=== PATIENT | male | born 1995 | race American Indian/Alaskan Native ===

== ENCOUNTER 2024-05-16 20:04 | Emergency (ER) | payer OTHER ==
[2024-05-16 20:44] LABS: BASOPHILS PERCENT AUTO 0.4 % (0.0-1.0); EOSINOPHILS PERCENT AUTO 0.6 % (1.0-3.0); HEMATOCRIT 44.5 % (40.0-54.0); HEMOGLOBIN 14.9 g/dL (14.0-18.0); LYMPHOCYTES PERCENT AUTO 17.2 % (20.5-50.1); MEAN CORPUSCULAR HEMOGLOBIN 28.9 pg (27.0-34.0); MEAN CORPUSCULAR HGB CONC 33.5 g/dL (33.0-35.0); MEAN CORPUSCULAR VOLUME 86.4 fL (80-100); MONOCYTES PERCENT AUTO 9.5 % (2-8); NEUTROPHILS PERCENT AUTO 72.3 % (42.2-75.2); PLATELET COUNT,PLT 292 10^3/uL (150-450); RED BLOOD CELL COUNT 5.15 10^6/uL (4.6-6.2)
[2024-05-16 20:59] LABS: ALBUMIN 4.2 g/dL (3.4-5.0); ANION GAP 12.4 mEq/L (7-13); BUN/CREATININE RATIO 14.6 (No establ ref range); CALCIUM 9.3 mg/dL (8.5-10.1); CREATININE 0.96 mg/dL (0.70-1.30); EST CRCL DRUG DOSING (CG) 131.78 mL/min; POTASSIUM,K 3.4 mmol/L (3.5-5.1); PROTEIN TOTAL,TP 8.3 g/dL (6.4-8.2)
[2024-05-16] MEDS: Potassium Chloride 10 MEQ Tab.ER PO ONE (21:09)
[2024-05-16 21:10] VITALS: BP 121/89; PULSE 99
== END 2024-05-16 21:16 | disposition home or self-care (01) ==
LOC: DL.ED 20:04
DX: K64.4 Residual hemorrhoidal skin tags (principal)
CPT/HCPCS: 36415; 80053; 85025; 99283; A9270-GY

== ENCOUNTER 2024-07-04 19:49 | Emergency (ER) | payer OTHER ==
[2024-07-04 20:06] VITALS: BP 147/107; PULSE 80
[2024-07-04] MEDS: Dexamethasone 6 MG TABLET PO ONE (20:23)
== END 2024-07-04 20:29 | disposition home or self-care (01) ==
LOC: DL.ED 19:49
DX: S39.012A Strain of muscle, fascia and tendon of lower back, initial encounter (principal); X50.9XXA Other and unspecified overexertion or strenuous movements or postures, initial encounter
CPT/HCPCS: 99283; J8540